=== PATIENT | male | born 1955 | race Caucasian/White ===

== ENCOUNTER 2017-02-24 18:23 | Emergency (ER) | payer OTHER ==
[2017-02-24] MEDS ORDERED: HYDROcodone/ACETAMIN 5-325 MG* 1 TAB PO ONE (20:43)
--- NOTE | 2017-02-24 21:17 | RAD ---
INDICATION: T3/T4 back pain COMPARISON: Chest x-ray dated January 22, 2013 TECHNIQUE: PA and lateral views of the chest were obtained. FINDINGS: The heart and mediastinum are normal in size and contour. Stable linear densities are noted overlying the left hilar and suprahilar region along the medial lung margin consistent with subpleural bullae. Otherwise the lungs are grossly clear. There is no evidence of large pleural effusion. Visualized bones are normal for the patient's age. There is no radiographic evidence of free air beneath the diaphragm IMPRESSION: No radiographic evidence of acute cardiopulmonary disease.
--- NOTE | 2017-02-24 21:26 | RAD ---
INDICATION: T3/T4 thoracic level back pain COMPARISON: None. TECHNIQUE: 2 views of the thoracic spine were obtained. FINDINGS: The vertebra are in normal alignment. No fracture is seen. Mild degenerative changes of the thoracic spine includes loss of intervertebral disc height. IMPRESSION: Degenerative changes of the thoracic spine without acute fracture, dislocation or other radiographically apparent acute bony abnormality.
--- NOTE | 2017-02-24 21:55 | UC ---
Back Pain HPI - HPI Summary HPI Summary: states he woke up with upper back pain which is very intense, 10/10 shooting to left side and arm. 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 Denies abdominal pain, chest pain, SOB or palpitations. Denies radiation to neck - History of Current Complaint Chief Complaint: UCBackPain Stated Complaint: BACK AND SHOULDER PAIN Time Seen by Provider: 02/24/17 19:29 Hx Obtained From: Patient Onset/Duration: Sudden Onset Timing: Constant Severity Initially: Severe Severity Currently: Severe Pain Scale Used: 0-10 Numeric - 10 Back Pain: Is Discrete @ - left upper back Character: Sharp, Burning Aggravating Factor(s): Movement, Lifting, Bending Alleviating Factor(s): Nothing Associated Signs And Symptoms: Positive: Negative - Allergies/Home Medications Allergies/Adverse Reactions: Allergies Allergy/AdvReac Type Severity Reaction Status Date / Time No Known Allergies Allergy Verified 04/07/13 11:33 Home Medications: Home Medications Sumatriptan Succinate [Imitrex] 50 mg PO 02/24/17 [History] PMH/Surg Hx/FS Hx/Imm Hx - Additional Past Medical History Additional PMH: migraine LITTLE - Surgical History Surgical History: Yes Surgery Procedure, Year, and Place: VARICOCOEL REPAIR. CARPLE TUNNEL REPAIR; RIGHT - Social History Alcohol Use: Occasionally Substance Use Type: None Smoking Status (MU): Heavy Every Day Tobacco Smoker Type: Cigarettes Amount Used/How Often: 1 PPD Length of Time of Smoking/Using Tobacco: "FOREVER" Have You Smoked in the Last Year: Yes Review of Systems Constitutional: Negative All Other Systems Reviewed And Are Negative: Yes Physical Exam Triage Information Reviewed: Yes Appearance: Well-Appearing Vital Signs: Initial Vital Signs Temp 98.1 F 02/24/17 18:34 Pulse 69 02/24/17 18:34 Resp 18 02/24/17 18:34 BP 119/71 02/24/17 18:34 Pulse Ox 97 02/24/17 18:34 Vital Signs Reviewed: Yes ENT: Positive: Pharynx normal Neck exam: Normal Respiratory Exam: Normal Cardiovascular Exam: Normal Abdominal Exam: Normal Musculoskeletal Exam: Other - tender left paraspinal area along level of T3-4 Back Pain Course/Dx - Course Course Of Treatment: take pain medication as needed, alignment, f/u PCP, referral to PT - Differential Dx/Diagnosis Provider Diagnoses: Osteoarthritis thoracic spine Discharge - Discharge Plan Condition: Stable Disposition: HOME Patient Education Materials: Osteoarthritis (ED) Referrals: Mikey Ponce MD [Primary Care Provider] - Images Front/Back of Body, Lg ([place]): 1 - tenderness 2 - tender
[2017-02-24 22:00] VITALS: BP 111/69
== END 2017-02-24 22:09 | disposition home or self-care (01) ==
LOC: UCEAST 18:23
DX: M47.894 Other spondylosis, thoracic region (principal); M25.519 Pain in unspecified shoulder; F17.210 Nicotine dependence, cigarettes, uncomplicated
CPT/HCPCS: 71046; 72070; 99212; G0463